=== PATIENT | male | born 1990 | race African-American/Black ===

== ENCOUNTER 2021-07-03 12:54 | Emergency (ER) | payer OTHER ==
[~2021-07-03] VITALS: Ht 190.5 cm; Wt 90.7 kg
[2021-07-03] MEDS ORDERED: LIDOCAINE1 EAC1 TD (14:12)
[2021-07-03] MEDS ORDERED: NAPROXEN250 MG PO (14:12)
[2021-07-03] MEDS ORDERED: CYCLOBENZAPRINE5 MG PO (14:12)
== END 2021-07-03 14:26 | disposition home or self-care (01) ==
LOC: FSED 13:04
DX: M54.2 Cervicalgia (principal); M54.50 Low back pain, unspecified; V43.52XA Car driver injured in collision with other type car in traffic accident, initial encounter; Y92.488 Other paved roadways as the place of occurrence of the external cause
CPT/HCPCS: 72100; 99282